=== PATIENT | female | born 1990 | race Caucasian/White ===

== ENCOUNTER 2018-12-15 12:05 | Emergency (ER) | payer OTHER ==
[2018-12-15 12:52] LABS: #Lymphocytes 1.3 thou/uL (1.20-3.40); #Monocytes 0.4 thou/uL (0.11-0.59); #Neutrophils 6.6 thou/uL (1.40-6.50); %Eosinophils 0.2 % (0.0-10.0); %Lymphocytes 15.6 % (21.0-51.0); %Monocytes 4.2 % (0.0-10.0); %Neutrophils 79.9 % (42.0-75.0); Hemoglobin 12.6 g/dL (12.0-16.0); Mean Corpuscular HGB CONC 33.6 g/dL (32.0-36.0); Mean Corpuscular Hemoglobin 30.3 pg (27.0-31.0); Mean Corpuscular Volume 90.4 fL (78.0-98.0); Mean Platelet Volume 7.4 fL (7.4-10.4); Platelet Count 237 thou/uL (130-400); RBC Distribution Width 11.7 % (11.5-14.5); Red Blood Cell (RBC) Count 4.14 mill/uL (4.20-5.40); White Blood Cell (WBC) Count 8.3 thou/uL (4.8-10.8)
[2018-12-15 13:05] LABS: BHCG - Serum POSITIVE (NEGATIVE); Pregs Control Background? CLEAR/WHITE (CLR/WHITE); Pregs Control Bar Appear? YES (CONTROL BAR)
[2018-12-15 13:14] LABS: ALT (SGPT) 32 U/L (8-55); AST (SGOT) 26 U/L (5-34); Albumin 3.4 g/dL (3.5-5.0); Alkaline Phosphatase 78 U/L (40-150); Anion Gap 10 mmol/L (10-20); BUN (Urea Nitrogen) 7 mg/dL (7.0-18.7); Bilirubin, Total 0.4 mg/dL (0.2-1.2); Calc. Creatinine Clearance 0 mL/min (70-130); Calcium 9.2 mg/dL (7.8-10.44); Carbon Dioxide 24 mmol/L (22-29); Chloride 105 mmol/L (98-107); Estimated GFR-MDRD Greater than 90; Globulin 3.6 g/dL (2.4-3.5); Glucose 92 mg/dL (70-105); Potassium 3.8 mmol/L (3.5-5.1); Sodium 135 mmol/L (136-145)
--- NOTE | 2018-12-15 13:15 | ULT ---
[facility] OBSTETRICAL ULTRASOUND: INDICATIONS: The patient fell on abdomen one hour ago. COMPARISON: none. FINDINGS: There is a single live intrauterine gestation, in a cephalic presentation. The placenta is anterior in location, without evidence of previa or disruption. Cervical length is 3.3 cm without funneling. Cardiac activity is measured at 143 beats per minute. The visualized head and stomach appear within normal limits. There is a three-vessel cord. Co rd insertion is normal appearing. The gestational age by ultrasound is 17 weeks 0 days, and the estimated due date is 05/25/2019. The gestational age by clinical dates is 17 weeks 5 days, and the estimated due date is 05/20/2019. The estimated weight is 185 g plus or minus 17 g (17th percentile). LEXA appears adequate. IMPRESSION: 1. Single live intrauterine gestation without acute abnormality. 2. Recommend follow-up examination in 1 to 2 weeks for a full anatomical survey. POS: [facility]
[2018-12-15 14:24] LABS: Bilirubin Negative (Negative); Blood, Urine Negative (Negative); Clarity Clear (Clear); Glucose, Urine (Dipstick) Normal (Negative); Leukocyte Negative Leu/uL (Negative); Nitrite Negative (Negative); Protein, Urine (Dipstick) 50 mg/dL (Neg-Trace)
[2018-12-15 14:35] LABS: Bacteria/HPF 2+ HPF (None Seen); Sperm/HPF None Seen HPF (None Seen)
[2018-12-15] MEDS ORDERED: Acetaminophen 500 MG TAB ONE (15:33)
== END 2018-12-15 16:44 | disposition home or self-care (01) ==
LOC: ERS 12:05
DX: O99.89 Other specified diseases and conditions complicating pregnancy, childbirth and the puerperium (principal); R55 Syncope and collapse; O23.42 Unspecified infection of urinary tract in pregnancy, second trimester; Z3A.17 17 weeks gestation of pregnancy
CPT/HCPCS: 36415; 36416; 76815; 80053; 81003; 81015; 84702; 84703; 85025; 93005; 96360

== ENCOUNTER 2019-01-31 12:33 | Day surgery (SDC) | payer OTHER ==
[2019-01-31 13:22] VITALS: BMI 36.9
[2019-01-31] MEDS ORDERED: hydrALAZINE 20 MG/ML VIAL SLOW IVP PRN (13:37)
[2019-01-31 14:27] LABS: #Lymphocytes 1.6 thou/uL (1.20-3.40); #Monocytes 0.4 thou/uL (0.11-0.59); #Neutrophils 8.1 thou/uL (1.40-6.50); %Basophils 0.3 % (0.0-1.0); %Eosinophils 0.2 % (0.0-10.0); %Lymphocytes 15.6 % (21.0-51.0); %Monocytes 4.2 % (0.0-10.0); %Neutrophils 79.6 % (42.0-75.0); Hemoglobin 12.6 g/dL (12.0-16.0); Mean Corpuscular HGB CONC 35.5 g/dL (32.0-36.0); Mean Corpuscular Hemoglobin 31.7 pg (27.0-31.0); Mean Corpuscular Volume 89.3 fL (78.0-98.0); Mean Platelet Volume 7.5 fL (7.4-10.4); Platelet Count 245 thou/uL (130-400); RBC Distribution Width 11.5 % (11.5-14.5); Red Blood Cell (RBC) Count 3.96 mill/uL (4.20-5.40); White Blood Cell (WBC) Count 10.2 thou/uL (4.8-10.8)
[2019-01-31 14:51] LABS: ALT (SGPT) 24 U/L (8-55); AST (SGOT) 17 U/L (5-34); Albumin 3.3 g/dL (3.5-5.0); Alkaline Phosphatase 79 U/L (40-150); Anion Gap 10 mmol/L (10-20); BUN (Urea Nitrogen) 9 mg/dL (7.0-18.7); Bilirubin, Total 0.3 mg/dL (0.2-1.2); Calc. Creatinine Clearance 237 mL/min (70-130); Carbon Dioxide 23 mmol/L (22-29); Chloride 104 mmol/L (98-107); Estimated GFR-MDRD Greater than 90; Globulin 3.3 g/dL (2.4-3.5); Glucose 79 mg/dL (70-105); Potassium 4.2 mmol/L (3.5-5.1); Protein, Total 6.6 g/dL (6.0-8.3); Sodium 133 mmol/L (136-145)
[2019-01-31 15:43] LABS: Bilirubin Negative (Negative); Blood, Urine Negative (Negative); Clarity Clear (Clear); Glucose, Urine (Dipstick) Normal (Negative); Leukocyte Negative Leu/uL (Negative); Nitrite Negative (Negative); Protein, Urine (Dipstick) Negative (Neg-Trace); RBC/HPF 0-3 HPF (0-3); Urobilinogen Normal mg/dL (Less than 2); WBC/HPF 0-3 HPF (0-3)
[2019-01-31 16:01] LABS: Bacteria/HPF 1+ HPF (None Seen)
--- NOTE | 2019-02-01 08:20 | SS ---
DATE OF ADMISSION: 01/31/2019 DATE OF DISCHARGE: 01/31/2019 REGULAR PHYSICIAN: Boni Sloan MD EVALUATING PHYSICIAN: Ney Mcgovern MD CHIEF COMPLAINT: Status post fall at [facility]. HISTORY OF PRESENT ILLNESS: Ms. Brown is a 28-year-old white female, G1, P0, with an estimated date of confinement of 05/31/2019, who presents after a fall at [facility] at 11 o'clock this morning. She denies pre- event aura. She has exhibited no postictal behavior, chest pain or shortness of breath. She states she was shopping at that time. She denies associated bleeding or loss of fluid. Her care has been with Dr. Sloan and it has been reportedly uncomplicated. PAST MEDICAL HISTORY: None. PAST SURGICAL HISTORY: Gastric sleeve, cholecystectomy, and tonsillectomy. CURRENT MEDICATIONS: vitamins. ALLERGIES: PENICILLIN WHICH GIVES HER HIVES. SOCIAL HISTORY: Denies tobacco, alcohol, or drug use. FAMILY HISTORY: Unremarkable. REVIEW OF SYSTEMS: Denies nausea, vomiting, fever, chills, ruptured membranes or vaginal bleeding. PHYSICAL EXAMINATION: VITAL SIGNS: Blood pressure is 117/76 and pulse is 68. She is afebrile. GENERAL: She is pleasant and in no acute distress. She answers questions appropriately and thoroughly. HEENT: Examination of her head shows no evidence of bruising or contusion. ABDOMEN: Soft, nontender, and gravid with no bruising. There is no guarding or rebound. heart rate tracing is stable. LABORATORY DATA: White count 10.2, hemoglobin and hematocrit are 12.6 and 35.3 , and platelet count 245,000. Chemistry; sodium 133, potassium 4.2, and creatinine 0.61. Total bilirubin 0.3. AST 17, ALT 24, and albumin 3.3. Urinalysis shows a specific gravity 1.021 with trace ketones. The patient is orally hydrated over her 4 hours of observation here. She has no bleeding or cramping. ASSESSMENT: 1. 22-week intrauterine . 2. Status post fall, no evidence of abruptio placenta. 3. Suspected mild dehydration. PLAN: In view of the patient's normal laboratories and urine specific gravity consistent with mild dehydration, the patient has been orally hydrated over the 4 hours of observation while she has been in Labor and Delivery. She was told particularly during hot weather to keep herself well hydrated with at least 6 to 8 tall glasses of water a day. She voiced understanding of her discharge instructions and was sent home. Job ID: [id number]
== END 2019-01-31 15:47 | disposition home or self-care (01) ==
LOC: L&D/OP 12:33
PROVIDERS: ATTEND Obstetrics & Gynecology
DX: Z04.3 Encounter for examination and observation following other accident (principal); Z3A.22 22 weeks gestation of pregnancy; W18.30XA Fall on same level, unspecified, initial encounter; Z91.81 History of falling; Y92.512 Supermarket, store or market as the place of occurrence of the external cause; Z88.0 Allergy status to penicillin
CPT/HCPCS: 36415; 80053; 81003; 85025; 99283